=== PATIENT | female | born 1950 | race Caucasian/White ===

== ENCOUNTER 2019-04-30 17:46 | Inpatient (IN) ==
[2019-04-30] MEDS ORDERED: NS 1,000 ML IV ONE ×2 (18:39→21:50)
[2019-04-30 18:51] LABS: INFLUENZA A NEGATIVE (NEGATIVE); INFLUENZA B NEGATIVE (NEGATIVE)
[2019-04-30 18:52] LABS: BASO# 0.02 X1000 (0.0-0.2); BASO% 0.1 % (0.0-0.8); EOS# 0.04 X1000 (0.0-0.7); EOS% 0.2 % (0.0-10.0); HEMATOCRIT 40.7 % (37.0-47.0); HEMOGLOBIN 14.2 g/dL (12.0-16.0); IMM GRAN# 0.04 X1000 (0.0-0.04); IMM GRAN% 0.2 % (0.0-0.5); LYMPH# 0.58 X1000 (1.2-3.4); LYMPH% 3.6 % (20.5-51.1); MCH 30.3 PG (27-31); MCHC 34.9 g/dL (33-37); MONO# 0.77 X1000 (0.11-0.59); MONO% 4.7 % (1.7-9.3); MPV 9.7 FL (7.4-10.4); NEUT# 14.88 X1000 (1.4-6.5); NEUT% 91.2 % (42.2-75.2); PLT 333 X1000 (130-400); RBC 4.68 XMIL (4.2-5.4); WBC 16.33 X1000 (4.8-10.8)
[2019-04-30 18:55] LABS: LYMPHS 5 % (21-51); MONO 5 % (1-9); SEGS 90 % (42-75)
[2019-04-30 19:05] LABS: AGAP 12; ALBUMIN 4.3 g/dL (3.5-5.0); ALKALINE PHOSPHATASE 84 U/L (32-104); BUN 20 mg/dL (8-22); CHLORIDE 97 mmol/L (98-107); COSMO 272; CREATININE 0.5 mg/dL (0.5-0.9); ESTIMATED GFR > 60; GLUCOSE 151 mg/dL (70-104); GOT 14 U/L (10-30); GPT 9 U/L (10-36); LIPASE 24 U/L (13-60); POTASSIUM 4.2 mmol/L (3.5-5.1); SODIUM 133 mmol/L (136-145); TCO2 24 mmol/L (25-35)
[2019-04-30 19:37] LABS: INR 0.93; PROTIME 12.9 Seconds (11.0-16.0)
[2019-04-30 19:38] LABS: PTT 28.9 Seconds (22.3-41.8)
[2019-04-30] MEDS ORDERED: ZOFRAN IV ONE (19:48)
--- NOTE | 2019-04-30 19:52 | PROVIDER DOCUMENTATION ---
This chart was entered by Nneka Mcneil Scribe, acting as scribe for Ana Luisa Rai CRNP. HPI-Abdominal Pain/GI Problem - General Chief Complaint: N/V/D Stated Complaint: V / D / DIABETIC Time Seen by Provider: 04/30/19 18:24 Source: patient Allergies/Adverse Reactions: Patient Allergies Allergy/AdvReac Type Severity Reaction Status Date / Time codeine AdvReac NAUSEA/VOMI Verified 04/30/19 18:02 TING cyclobenzaprine AdvReac HIVES Verified 04/30/19 18:01 [From Flexeril] Penicillins AdvReac HIVES Verified 04/30/19 18:01 Sulfa (Sulfonamide AdvReac HIVES Verified 04/30/19 18:01 Antibiotics) Home Medications: Home Medication List Medication Instructions Recorded Confirmed Last Taken Type Atorvastatin Calcium 1 tab PO DAILY 04/30/19 04/30/19 Unknown History Duloxetine HCl 1 cap PO DAILY 04/30/19 04/30/19 Unknown History Hydrocodone/Acetaminophen [[place] 1 tab PO Q6H PRN 04/30/19 04/30/19 Unknown History 10-325 Tablet] Lisinopril 1 tab PO DAILY 04/30/19 04/30/19 Unknown History Meloxicam 1 tab PO DAILY 04/30/19 04/30/19 Unknown History Metformin HCl [Metformin HCl ER] 2 tab PO BID 04/30/19 04/30/19 Unknown History Pantoprazole Sodium 1 tab PO DAILY 04/30/19 04/30/19 Unknown History Pregabalin [Lyrica] 1 cap PO BID 04/30/19 04/30/19 Unknown History - History of Present Illness-ABD Nature of Presenting Problems: Patient is a 68yo F who presents to ED with c/o n/v/d since this am and generalized abd pain. Patient reports decreased appetite. States emesis and diarrhea are yellow in color. Reports hx of DM managed with Metformin. Reports feeling light headed. Denies fever/chills, CP, or SOB. Abdominal Pain Onset Location: reports: generalized abdomen Pain Radiation: reports: no radiation Quality of Pain: reports: pressure Severity in ED: reports: mild Onset/Duration: reports: this morning Timing: reports: still present Activities at Onset: reports: none Modifying Factors: improves with: nothing Associated Symptoms: reports: diarrhea, headaches, nausea, vomiting, other (lightheadedness). denies: chest pain, diaphoresis, fever/chills, genitourinary problems, shortness of breath Review of Systems - Adult - REVIEW OF SYSTEMS - ADULT ROS:: pt denies fever but is 100.6 in er. Constitutional: reports: no symptoms reported. denies: chills, fatique, night sweats Eyes: reports: no symptoms reported. denies: decreased vision, blurred vision, double vision Ears, Nose, Mouth & Throat: reports: no symptoms reported Cardiovascular: reports: no symptoms reported. denies: chest pain, palpitations Respiratory: reports: no symptoms reported. denies: cough, dyspnea on exertion, shortness of breath Gastrointestinal: reports: see HPI, abdominal pain, diarrhea, nausea, poor appetite, vomiting. denies: hematemesis, constipation, frequent heartburn Genitourinary: reports: no symptoms reported. denies: dysuria, frequency, urgency Musculoskeletal: reports: back pain (chronic) Integumentary: reports: no symptoms reported Neurological: reports: other (lightheadedness). denies: slurred speech, syncope Psychiatric: reports: no symptoms reported Endocrine: reports: no symptoms reported Past History - Adult - PAST MEDICAL HISTORY-ADULT Review of Records: reports: Nursing Assessment Review, Medications Reviewed Major Childhood Illnesses: reports: denies history Cardiovascular: reports: HTN, hyperlipidemia Respiratory: reports: denies history Gastrointestinal: reports: denies history Obstetrical/Gynecological: reports: denies history Genitourinary: reports: denies history Musculoskeletal: reports: chronic pain, fibromyalgia Neurological: reports: denies history Endocrine/Immune: reports: Diabetes Diabetes Type: Type 2 Diabetes controlled by:: PO Meds Other Conditions: reports: denies history - PRIOR SURGERIES/PROCEDURES Surgical/Procedure History: reports: orthopedic (extremity), back/neck - IMMUNIZATION STATUS Childhood Immunizations: See Nurse Assessment Flu Vaccine: See Nurse Assessment - FAMILY HISTORY Family History: reviewed, not pertinent - SOCIAL HISTORY Smoking: cigarettes, greater than 1 pack/day Provider spent 3-5 mins advising pt. on dangers of tobacco.: Discussed manners to quit use, and f/u contacts for add'l counseling. Substance Use: none/never Physical Exam-General - PHYSICAL EXAM-ADULT Initial Vital Signs Reviewed: Yes - CONSTITUTIONAL General Appearance: alert, mild distress. negative: lethargic, slow to respond, obtunded - EYES Eyes: PERRL/EOMI, pink conjunctivae - HEAD, EARS, NOSE, MOUTH & THROAT HENMT: normocephalic/atraumatic, moist mucous membranes - NECK Neck: non-tender, full range of motion, supple, normal inspection - RESPIRATORY Respiratory: chest non-tender, lungs clear, normal breath sounds, no pleuratic chest pain, no respiratory distress, no accessory muscle use. negative: crackles, rales, rhonchi, stridor, wheezing, retractions, splinting - CARDIOVASCULAR Cardiovascular: no gallop, tachycardia. negative: regular rate, rhythm, JVD, bradycardia - GASTROINTESTINAL (ABDOMEN) Abdominal Exam: soft, no organomegaly, no pulsatile mass, abnormal bowel sounds (hypoactive all quadrants), tenderness (general abd to palp). negative: non tender, guarding, rigid, rebound, Rovsing's sign - LYMPHATIC Lymphatic: no adenopathy - MUSCULOSKELETAL Back Exam: normal inspection, no CVA tenderness Extremity: normal range of motion, non-tender, normal gait, normal inspection, pelvis stable - SKIN Integumentary: normal color, warm/dry. negative: cyanosis, jaundice, pallor - NEUROLOGIC Neurologic: grossly normal - PSYCHIATRIC Psych/Mental Status: normal mood/affect, normal thought content, normal thought process, oriented x 3 Progress - PLAN OF CARE/RESULTS Progress/Plan/Lab Results: Vital Signs - 8 hr 04/30/19 17:53 Temperature 100.6 F H Pulse Rate 129 H Respiratory Rate 18 Blood Pressure 101/66 O2 Sat by Pulse Oximetry 97 Laboratory Results - last 24 hr 04/30/19 18:39 POC Glucose 143 H Orders Category Date Time Status FSBS [Finger Stick Blood Sugar (ED)] DIRECTED Care 04/30/19 18:29 Active Saline Loc NOW Care 04/30/19 18:14 Active Saline Loc NOW Care 04/30/19 18:29 Completed AMYLASE [CHEM] Stat Lab 04/30/19 18:02 Ordered CBC WITH DIFF [HEME] Stat Lab 04/30/19 18:02 Ordered COMPREHENSIVE METABOLIC PANEL [CHEM] Stat Lab 04/30/19 18:[address] Stat Lab 04/30/19 18:12 Received LIPASE [CHEM] Stat Lab 04/30/19 18:[address] W/POSS RFLX CULT [URINALYSIS] Stat Lab 04/30/19 18:02 Uncollected 0.9% Sodium Chloride Inj [Ns] 1,000 ml Med 04/30/19 18:39 Active IV 999 mls/hr EKG [EKG] Stat Ther 04/30/19 18:38 Ordered Lab results, imaging results, and plan of care discussed with patient who verbalizes understanding. Patient notified of CT findings and need for inpatient admission. Patient verbalizes understanding. Result Diagrams: 04/30/19 18:19 04/30/19 18:19 - EKG 1 Time of EKG reading by physician:: 19:10 EKG Read and Signed by:: Jorge Sandy EKG Interpretation (*Must complete 3 of following elements*): Abnormal Rate: 106 (possible left atrial enlargement ) Rhythm: ST QRS: RBB TN Interval: normal ST Wave: normal - XRAY 1 XRAY: Bilateral XRAY Study: Chest Impression: See EMR Report ([facility] - [address] [place] [address] [place], [place] [id number] [facility] - [address] [place] [address] Department of Imaging Patient: BONNIE HOLCOMB Date: 04/30/19#: [id number] : 9A Status: REG ERAcct#: [id number] Age/Sex: 68/FRoom/Bed: Loc: P.ED Ordering Physician: Ana Luisa Rai Family Physician: None,PCP Reason for Procedure: septic protocol Signed EXAM: CHEST-1 VIEW - 04/30/2019 HISTORY: septic protocol TECHNIQUE: One view chest COMPARISON: None. FINDINGS: Heart size is normal. There is a tiny left midlung granuloma from old granulomatous disease. There is mild interstitial marking prominence which may be chronic. There is no focal consolidation, pleural effusion, or pneumothorax identified. There is scoliosis noted. IMPRESSION: Mild interstitial marking prominence which may be chronic. No discrete pneumonia. Electronically signed by Swapnil Johnson 04/30/2019 9:11 PM 04/30/192110 Interpreting Physician: Swapnil Johnson MD Dic tated Date/Time: 04/30/192109 cc: Ana Luisa Rai; None,PCP) - CT/MRI 1 CT Study: Abdomen, Pelvis Impression: See EMR Report ([facility] - [address] , [address], [place] [address] [facility] - [address] [place] [address] Department of Imaging Patient: BONNIE HOLCOMB Date: 04/30/19MR#: [id number] : 1950DM Status: REG [facility]#: [id number] Age/Sex: 68/FRoom/Bed: Loc: P.ED Ordering Physician: Ana Luisa Rai Family Physician: None,PCP Reason for Procedure: abd pain Signed EXAM: CT ABD/PELVIS W/IV CONT ONLY - 04/30/2019 HISTORY: abd pain TECHNIQUE: CT abdomen/pelvis with intravenous contrast. No oral contrast administered per request of the referring provider. COMPARISON: 03/18/2018 CT abdomen FINDINGS: The visualized lung bases appear clear. The gallbladder is distended. There is mild biliary ductal dilatation which appears of increased mildly. There are no calcified gallstones identified. There is no pancreatic mass or inflammation identified. There is no pericholecystic inflammation identified. There are no other substantial abnormalities of the liver, spleen, or adrenal glands. The bilateral kidneys enhance homogeneously. There is no hydronephrosis. There are no substantial enlarged lymph nodes identified. There are atherosclerotic calcifications noted. There are thoracolumbar levoscoliosis and degenerative changes noted. There is no evidence of bowel obstruction. There are some retained fluid in distal small bowel. There is possibly some mild wall thickening along proximal and mid small bowel. These findings may relate to mild enteritis. The appendix shows no obvious inflammation. There is diverticulosis at the sigmoid colon. There is no indication of diverticulitis. There is no free air, free fluid, or abscess identified. There is a prosthesis noted between the urinary bladder and rectum. IMPRESSION: Distended gallbladder and mild biliary ductal dilatation, no etiology for which is apparent. No calcified gallstones. No pericholecystic inflammation. No visible pancreatic lesion. Correlation with clinical evaluation is recommended. Possible mild enteritis. No bowel obstruction. No obvious appendicitis. Uncomplicated diverticulosis at sigmoid colon. No abscess. No free air. Atherosclerotic calcifications noted. This exam was performed using automated exposure control, adjustment of mA or kV according to patient size, and/or use of iterative reconstruction technique. Electronically signed by Swapnil Johnson 04/30/2019 9:24 PM 04/30/192123 Interpreting Physician: Swapnil Johnson MD Dictated Date/Time: 04/30/192110 cc: Ana Luisa Rai; None,PCP) - CONSULTS/PCP/HOSPITALIST Notification #1 *Consult/PCP/Hospitalist*: MD Bhargavi Time Discussed: 21:43 Reason/Comments: Enteritis, tachycardia, leukocytosis Consult Disposition: Admit Departure - Departure Date of Disposition Decision: 04/30/19 Time of Disposition Decision: 21:43 DIAGNOSIS: Enteritis, Hyponatremia, Tachycardia Nausea and vomiting Qualifiers: Vomiting type: unspecified Vomiting Intractability: non-intractable Qualified Code(s): R11.2 - Nausea with vomiting, unspecified Abdominal pain Qualifiers: Abdominal location: generalized Qualified Code(s): R10.84 - Generalized abdominal pain Leukocytosis Qualifiers: Leukocytosis type: unspecified Qualified Code(s): D72.829 - Elevated white blood cell count, unspecified Disposition: ADMITTED INPATIENT 09 Certified Medical Emergency: Emergent Condition: Stable Referrals and Follow-Ups: None,PCP [Primary Care Provider] - - Critical Care Note This patient required my direct & personal management of CC.: No Attestation - Physician/ LAUREL Attestation Patient care was provided by Advanced Practice Provider:: Yes Advanced Practice Provider:: Ana Luisa Rai Advanced Practice Provider documentation review:: The Mid-level provider documentation, treatment plan and medical decision making was reviewed by the physician who agrees with all treatment and medical decision making by the MLP. The physician spent face to face time with patient:: No Advanced Practice Provider documentation review:: Supervising physician onsite and consulted in the evaluation and care of this patient. The physician did not have a face to face encounter with the patient. This chart was documented by the indicated scribe, (Nneka Mcneil Scribe) and accurately reflects the services I performed and decisions made by me, Ana Luisa Rai CRNP, as attested by the provider's signature.
--- NOTE | 2019-04-30 19:57 | EKG Report ---
Test Performed on : 04/30/2019 7:05:28 PM Test Reason : tachycardia Blood Pressure : / mmHG Vent. Rate : 106 BPM Atrial Rate : 106 BPM P-R Int : 120 ms QRS Dur : 108 ms QT Int : 344 ms P-R-T Axes : 077 090 058 degrees QTc Int : 456 ms Sinus tachycardia. Possible Left atrial enlargement Right bundle branch block Abnormal ECG No previous ECGs available Unconfirmed Result
[2019-04-30 20:19] LABS: BILIRUBIN URINE 2+ (NEGATIVE); BLOOD URINE NEGATIVE (NEGATIVE); GLUCOSE URINE NEGATIVE (NEGATIVE); KETONE URINE 1+(Small) mg/dL (NEGATIVE); LEUKOCYTES URINE TRACE (NEGATIVE); NITRITE URINE NEGATIVE (NEGATIVE); PH URINE 6.5; PROTEIN URINE 2+(100 mg/dL) mg/dL (NEGATIVE); SP GRAVITY URINE 1.015; UROBILINOGEN URINE NORMAL
[2019-04-30 20:20] LABS: CLARITY CLEAR (CLEAR); COLOR YELLOW
[2019-04-30 20:22] LABS: URINE BACTERIA NEGATIVE /HFP; URINE CAST NONE SEEN /LPF; URINE CRYSTAL NONE SEEN /HPF; URINE EPITHELIAL CELLS <10 /HPF (<10); URINE RBC <10 /HPF (<10); URINE SOURCE CLEAN CATCH; URINE WBC <10 /HPF (<10); URINE YEAST NONE SEEN /HPF
--- NOTE | 2019-04-30 21:13 | Diag Imaging Result Doc PS360 ---
EXAM: CHEST-1 VIEW - 04/30/2019 HISTORY: septic protocol TECHNIQUE: One view chest COMPARISON: None. FINDINGS: Heart size is normal. There is a tiny left midlung granuloma from old granulomatous disease. There is mild interstitial marking prominence which may be chronic. There is no focal consolidation, pleural effusion, or pneumothorax identified. There is scoliosis noted. IMPRESSION: Mild interstitial marking prominence which may be chronic. No discrete pneumonia. Electronically signed by Swapnil Johnson 04/30/2019 9:11 PM
--- NOTE | 2019-04-30 21:27 | Diag Imaging Result Doc PS360 ---
EXAM: CT ABD/PELVIS W/IV CONT ONLY - 04/30/2019 HISTORY: abd pain TECHNIQUE: CT abdomen/pelvis with intravenous contrast. No oral contrast administered per request of the referring provider. COMPARISON: 03/18/2018 CT abdomen FINDINGS: The visualized lung bases appear clear. The gallbladder is distended. There is mild biliary ductal dilatation which appears of increased mildly. There are no calcified gallstones identified. There is no pancreatic mass or inflammation identified. There is no pericholecystic inflammation identified. There are no other substantial abnormalities of the liver, spleen, or adrenal glands. The bilateral kidneys enhance homogeneously. There is no hydronephrosis. There are no substantial enlarged lymph nodes identified. There are atherosclerotic calcifications noted. There are thoracolumbar levoscoliosis and degenerative changes noted. There is no evidence of bowel obstruction. There are some retained fluid in distal small bowel. There is possibly some mild wall thickening along proximal and mid small bowel. These findings may relate to mild enteritis. The appendix shows no obvious inflammation. There is diverticulosis at the sigmoid colon. There is no indication of diverticulitis. There is no free air, free fluid, or abscess identified. There is a prosthesis noted between the urinary bladder and rectum. IMPRESSION: Distended gallbladder and mild biliary ductal dilatation, no etiology for which is apparent. No calcified gallstones. No pericholecystic inflammation. No visible pancreatic lesion. Correlation with clinical evaluation is recommended. Possible mild enteritis. No bowel obstruction. No obvious appendicitis. Uncomplicated diverticulosis at sigmoid colon. No abscess. No free air. Atherosclerotic calcifications noted. This exam was performed using automated exposure control, adjustment of mA or kV according to patient size, and/or use of iterative reconstruction technique. Electronically signed by Swapnil Johnson 04/30/2019 9:24 PM
[2019-04-30] MEDS ORDERED: FLAGYL 500 MG/NS 500 MG/100 ML IVPB IV ONE (21:36)
[2019-04-30] MEDS ORDERED: LEVAQUIN 750 MG/D5W 750 MG/150 ML IVPB IV ONE (21:37)
[2019-05-01] MEDS ORDERED: ZOFRAN IV PRN (00:20)
[2019-05-01] MEDS: NORCO-10 PO PRN ×2 (00:59→06:42)
[2019-05-01] MEDS ORDERED: TUMS EXTRA STRENGTH PO PRN (05:54)
[2019-05-01 06:12] LABS: AGAP 9; ALBUMIN 3.5 g/dL (3.5-5.0); ALKALINE PHOSPHATASE 69 U/L (32-104); BUN 18 mg/dL (8-22); CALCIUM 8.1 mg/dL (8.8-10.2); CHLORIDE 103 mmol/L (98-107); COSMO 274; CREATININE 0.4 mg/dL (0.5-0.9); ESTIMATED GFR > 60; GLUCOSE 103 mg/dL (70-104); GOT 15 U/L (10-30); GPT 10 U/L (10-36); POTASSIUM 3.9 mmol/L (3.5-5.1); SODIUM 136 mmol/L (136-145); TCO2 25 mmol/L (25-35); TOTAL PROTEIN 5.9 g/dL (6.3-8.3)
[2019-05-01 06:13] LABS: BASO# 0.01 X1000 (0.0-0.2); BASO% 0.1 % (0.0-0.8); EOS# 0.03 X1000 (0.0-0.7); EOS% 0.3 % (0.0-10.0); HEMATOCRIT 35.4 % (37.0-47.0); IMM GRAN# 0.01 X1000 (0.0-0.04); IMM GRAN% 0.1 % (0.0-0.5); LYMPH# 0.92 X1000 (1.2-3.4); LYMPH% 10.6 % (20.5-51.1); MCH 29.8 PG (27-31); MCHC 33.9 g/dL (33-37); MCV 87.8 FL (81-99); MONO# 0.72 X1000 (0.11-0.59); MONO% 8.3 % (1.7-9.3); MPV 9.7 FL (7.4-10.4); NEUT# 6.98 X1000 (1.4-6.5); NEUT% 80.6 % (42.2-75.2); PLT 283 X1000 (130-400); RBC 4.03 XMIL (4.2-5.4); RDW 14.9 % (11.5-14.5); WBC 8.67 X1000 (4.8-10.8)
[2019-05-01 08:03] VITALS: BP 127/60
[2019-05-01] MEDS ORDERED: PRINIVIL PO SCH (09:00)
[2019-05-01] MEDS ORDERED: LEVAQUIN PO SCH (09:00)
[2019-05-01] MEDS ORDERED: MOBIC PO SCH (09:00)
[2019-05-01] MEDS ORDERED: CYMBALTA PO SCH (09:00)
[2019-05-01] MEDS ORDERED: LYRICA PO SCH (09:00)
[2019-05-01] MEDS ORDERED: GLUCOPHAGE XR PO SCH (09:00)
[2019-05-01] MEDS ORDERED: FLAGYL PO SCH (09:00)
[2019-05-01] MEDS: LIORESAL PO SCH ×2 (09:41→09:48)
[2019-05-02] MEDS ORDERED: PROTONIX PO SCH (07:00)
--- NOTE | 2019-05-02 12:09 | HISTORY AND PHYSICAL ---
CHIEF COMPLAINT: Nausea, vomiting. HISTORY OF PRESENT ILLNESS: Patient is a 68-year-old female who presented to the emergency department with nausea, vomiting, abdominal pain, diarrhea, low-grade fevers. No real chills for the past 2 days. Continues to worsen. States she has been having emesis and diarrhea. Denies hematochezia, melena, hematemesis, hemoptysis. PAST MEDICAL HISTORY: 1. Diabetes. 2. Hypertension. 3. Hyperlipidemia. 4. Chronic pain. 5. Fibromyalgia. PAST SURGICAL HISTORY: She has had neck and back surgery. FAMILY HISTORY: Noncontributory. SOCIAL HISTORY: She is a lives at home. She does smoke approximately a pack a day. Denies alcohol or other illicit substance. Discussed her the importance of stopping smoking and ways to stop. REVIEW OF SYSTEMS: Positive low-grade fevers, abdominal pain, nausea. Denies any hematochezia, melena, hematemesis, hematuria. Denies dysuria, frequency or urgency. Denies constipation, melena, hematochezia. Has had generalized weakness but no focal weakness. Denies any headaches, blurred vision, change in her vision. PHYSICAL EXAMINATION: VITAL SIGNS: Temperature 100.6 degrees, pulse 129, respiratory 18, BP 101/66, saturation 97% on room air. GENERAL: Patient is awake, alert, very pleasant. She is in no apparent distress. HEENT: Normocephalic. NECK: Supple. CARDIOVASCULAR: Regular rate. No murmurs. CHEST: Clear, nonlabored.Abdomen: Soft, obese, nondistended, nontender. Extremities: Moves all extremities. Neurologic: No focal neurological changes. She is awake, alert, oriented x3. ASSESSMENT: 1. Febrile illness. 2. Leukocytosis. 3. Diabetes with hyperglycemia. 4. Enteritis. 5. Nausea, vomiting. 6. Hypertension. 7. Hyponatremia. PLAN: We will admit patient to the hospital, antibiotics, IV fluids, pain control. Follow her sodium as well as white blood cell count and further orders as needed. cc: Guzman Burk MD
--- NOTE | 2019-05-02 23:37 | DISCHARGE SUMMARY ---
ADMISSION DATE: 04/30/2019 DISCHARGE DATE: 05/01/2019 DISCHARGE DIAGNOSES: 1. Nausea, vomiting. 2. Abdominal pain. 3. Myalgias. 4. Hypertension. 5. Leukocytosis. 6. Enteritis. 7. Fever. CONSULTATIONS: None. PROCEDURES: None. BRIEF HOSPITAL COURSE: The patient is a 68-year-old female who presented to the hospital with nausea, vomiting, and abdominal pain. This all seems to have improved. In fact, patient is asking to go home. We did convince her to stay through breakfast and lunch to make sure she was able to keep down food, which she was. DISPOSITION: As patient was able to keep down breakfast and lunch, she is pretty insistent on discharging home. Her symptoms appear to have resolved. We will discharge her home on Levaquin and Flagyl for the next 5 days. Discussed with her that should symptoms worsen or return she will need to come back for further inpatient treatment and IV fluids. The patient acknowledges that she understands the risks and is ready to go home. No changes were made on her home medications, diet, or activity. cc: Guzman Burk MD
== END 2019-05-01 10:25 | disposition home or self-care (01) | DRG 392 ==
LOC: P.ED 17:46 → P.MEDSURG 22:46
PROVIDERS: ATTEND Family Medicine
CPT/HCPCS: 71010; 71045; 74177; 80053; 81001; 82009; 82150; 82550; 82948; 83605; 83690; 84484; 85025; 85610; 85730; 87040; 87088; 87275; 87276; 87804; 93005; 94761; A9270; J1956; J2405; J7030; Q9967; S0030; XXXXX